=== PATIENT | female | born 1970 | race Two or more races ===

== ENCOUNTER 2016-06-26 19:49 | Emergency (ER) | payer OTHER ==
[~2016-06-26] VITALS: Ht 165.1 cm; Wt 90.7 kg
[~2016-06-26 19:49] MED LIST: *INS REG SQ; ACET325T53 PO; ATOR20TA PO; BLOO-367 VI; Cyclobenzaprine Hcl PO; HYDR-3326 PO; METF10002 PO; NPH,100V SQ; PANT40TA2 PO; PHOS250T2 PO; SERT100T PO
[2016-06-26 20:11] VITALS: BP 149/74
== END 2016-06-26 21:20 | disposition left against medical advice (07) ==
LOC: ER 19:52
DX: Z53.21 Procedure and treatment not carried out due to patient leaving prior to being seen by health care provider (principal)
CPT/HCPCS: A4606; Z7610

== ENCOUNTER 2016-12-25 06:13 | Emergency (ER) | payer OTHER ==
[~2016-12-25] VITALS: Ht 165.1 cm; Wt 90.7 kg
--- NOTE | 2016-12-25 06:25 | NUR ---
To bed 8 a 46 yo female bibself bilat flank pain, frequent painful urination x 1 day. Patient is aaox4, nad noted. vss. afebrile. ambulatory with steady gait. comfort measures rendered.
[2016-12-25] MEDS ORDERED: KETOROLAC TROMETHAMINE 15 MG/ML VIAL ONE (06:45)
[2016-12-25] MEDS ORDERED: ONDANSETRON HCL/PF 4 MG/2 ML VIAL ONE (06:45)
--- NOTE | 2016-12-25 06:45 | NUR ---
started a saline lock on the right hand g20, blood drawn and sent to lab.
[2016-12-25 06:50] LABS: BASOPHILS % (AUTO) 0.3 % (0.0-2.0); EOSINOPHILS # (AUTO) 0.1 /CMM (0.0-0.7); EOSINOPHILS % (AUTO) 1.2 % (0.0-6.0); HEMATOCRIT 35 % (33-45); HEMOGLOBIN 11.3 g/dL (11.5-14.8); LYMPHOCYTES # (AUTO) 1.4 /CMM (0.8-4.8); LYMPHOCYTES % (AUTO) 13.5 % (20.0-44.0); MEAN CORPUSCULAR HEMOGLOBIN 24 PG (26.0-33.0); MEAN CORPUSCULAR HGB CONC 33 g/dl (31.0-36.0); MEAN CORPUSCULAR VOLUME 73 fL (82-100); MONOCYTES # (AUTO) 0.4 /CMM (0.1-1.30); MONOCYTES % (AUTO) 4.2 % (2.0-12.0); NEUTROPHILS # (AUTO) 8.5 /CMM (1.8-8.9); NEUTROPHILS % (AUTO) 80.8 % (43.0-81.0); PLATELET COUNT (AUTO) 317 /CMM (150-450); RDW COEFFICIENT OF VARIATION 18.8 (11.5-15.0); RED BLOOD CELL COUNT(AUTO) 4.72 MIL/uL (4.0-5.2); WHITE BLOOD COUNT (AUTO) 10.6 K/uL (4.3-11.0)
[2016-12-25 06:55] LABS: BILIRUBIN,URINE NEGATIVE (NEGATIVE); BLOOD, URINE 3+ Ery/uL (NEGATIVE); KETONES,URINE NEGATIVE (NEGATIVE); LEUKOCYTE ESTERASE ,URINE 3+ (NEGATIVE); NITRITE, URINE NEGATIVE (NEGATIVE); PROTEIN,URINE TRACE mg/dl (NEGATIVE); UGLUCOSE NEGATIVE (NEGATIVE); UROBILINOGEN,URINE 0.2 EU/dL (0.2)
--- NOTE | 2016-12-25 06:55 | NUR ---
medicated patient as ordered by Dr Partida.
[2016-12-25 06:57] LABS: APPEARANCE,URINE SLIGHTLY CLOUDY (CLEAR); COLOR,URINE STRAW (YELLOW)
[2016-12-25] MEDS ORDERED: ONDANSETRON HCL/PF 4 MG/2 ML VIAL IVP ONE (07:00)
[2016-12-25] MEDS ORDERED: IV NS 0.9% 1,000 ML BAG IV ONE (07:00)
[2016-12-25] MEDS ORDERED: KETOROLAC TROMETHAMINE INJ 30 MG/ML VIAL IV ONE (07:00)
[2016-12-25 07:03] LABS: BACTERIA,URINE 1+ /HPF (None Seen); WBC,URINE 21-50 /HPF (0-3)
[2016-12-25 07:06] LABS: ALBUMIN 3.6 g/dL (3.4-5.0); BILIRUBIN,TOTAL 0.4 mg/dL (0.2-1.0); CALCIUM, SERUM 8.7 mg/dL (8.5-10.1); CREATININE 0.7 mg/dL (0.6-1.3); POTASSIUM 3.7 mmol/L (3.5-5.1); TOTAL PROTEIN, SERUM 7.9 g/dL (6.4-8.2)
[2016-12-25 07:19] LABS: BAND % (MANUAL) 1 % (0.0-5.0); EOSINOPHILS % (MANUAL) 2 % (0-4); LYMPHOCYTES % (MANUAL) 17 % (16-48); MONOCYTES % (MANUAL) 4 % (0-11.0); NEUTROPHILS % (MANUAL) 76 (42-76)
--- NOTE | 2016-12-25 07:20 | NUR ---
Patient is resting comfortably in bed with eyes closed. Easily aroused. VSS
[2016-12-25] MEDS ORDERED: CEFTRIAXONE 1GM BAG (ER ONLY) 1 GM/50 ML PIGGYBACK IV ONE (07:30)
[2016-12-25] MEDS ORDERED: CEFTRIAXONE 1GM BAG (ER ONLY) 50 ML IV ONE (07:36)
--- NOTE | 2016-12-25 08:10 | NUR ---
IV removed. Catheter intact and site benign. Pressure and 4x4 applied to site. No bleeding noted.Patient discharged to home in stable condition. Written and verbal after care instructions given. Patient verbalizes understanding of instruction.
--- NOTE | 2016-12-25 08:35 | NUR ---
Patient discharged to home in stable condition. Written and verbal after care instructions given. Patient verbalizes understanding of instruction.
[2016-12-25 09:12] VITALS: BP 158/80
== END 2016-12-25 08:15 | disposition home or self-care (01) ==
LOC: ER 06:15
DX: N12 Tubulo-interstitial nephritis, not specified as acute or chronic (principal); E11.9 Type 2 diabetes mellitus without complications; F32.9 Major depressive disorder, single episode, unspecified; Z79.4 Long term (current) use of insulin; Z90.710 Acquired absence of both cervix and uterus
CPT/HCPCS: 36415; 80048; 80076; 81001; 84703; 85025; 87077; 87086; 87186; 96361; 96365; 96375; 99284; A4606; J0696; J1885; J2405; J7030; Z7610; 81000-TC

== ENCOUNTER 2018-04-14 11:09 | Emergency (ER) | payer OTHER ==
[~2018-04-14] VITALS: Ht 165.1 cm; Wt 95.3 kg
[~2018-04-14 11:09] MED LIST changes: -HYDR-3326 PO; +HYDR-3974 PO; +METF-442 PO; -METF10002 PO
--- NOTE | 2018-04-14 11:10 | NUR ---
PT BIB SELF C/O FLU-LIKE SYMPTOMS X 2 WEEKS: COUGH, CHEST CONGESTION, NASAL CONGESTION, PT IS AAOX4, NOT IN RESPIRATORY DISTRESS, V/S STABLE, KEPT RESTED AND COMFORTABLE, AWAITING ER MD FOR EVAL.
--- NOTE | 2018-04-14 11:52 | NUR ---
PT LABS DRAWNED AND SENT TO LAB. AWAITING RESULTS.
--- NOTE | 2018-04-14 11:58 | NUR ---
RADIOLOGY AT BEDSIDE FOR XRAY.
[2018-04-14] MEDS ORDERED: IV NS 0.9% 1,000 ML BAG IV ONE (12:00)
[2018-04-14 12:02] LABS: BASOPHILS % (AUTO) 0.5 % (0.0-2.0); EOSINOPHILS % (AUTO) 3.1 % (0.0-6.0); HEMATOCRIT 39 % (33-45); HEMOGLOBIN 12.6 g/dL (11.5-14.8); LYMPHOCYTES # (AUTO) 1.5 /CMM (0.8-4.8); LYMPHOCYTES % (AUTO) 30.2 % (20.0-44.0); MEAN CORPUSCULAR HGB CONC 33 g/dl (31.0-36.0); MEAN CORPUSCULAR VOLUME 81 fL (82-100); MONOCYTES # (AUTO) 0.3 /CMM (0.1-1.30); MONOCYTES % (AUTO) 6.7 % (2.0-12.0); NEUTROPHILS % (AUTO) 59.5 % (43.0-81.0); PLATELET COUNT (AUTO) 280 /CMM (150-450); RED BLOOD CELL COUNT(AUTO) 4.76 MIL/uL (4.0-5.2)
[2018-04-14 12:17] LABS: CALCIUM, SERUM 8.5 mg/dL (8.5-10.1); CREATININE 0.6 mg/dL (0.6-1.3); POTASSIUM 3.1 mmol/L (3.5-5.1)
[2018-04-14] MEDS ORDERED: POTASSIUM CHLORIDE 10 MEQ TABLET.SA PO ONE (13:00)
[2018-04-14] MEDS ORDERED: POTASSIUM CHLORIDE 10 MEQ TABLET.SA ONE (13:15)
[2018-04-14 13:57] VITALS: BP 128/81
--- NOTE | 2018-04-14 13:57 | NUR ---
IV removed. Catheter intact and site benign. Pressure and 4x4 applied to site. No bleeding noted. Patient discharged to home in stable condition. Written and verbal after care instructions given. Patient verbalizes understanding of instruction.
== END 2018-04-14 13:58 | disposition home or self-care (01) ==
LOC: ER 11:15
DX: J20.9 Acute bronchitis, unspecified (principal); J06.9 Acute upper respiratory infection, unspecified; E11.9 Type 2 diabetes mellitus without complications; I10 Essential (primary) hypertension; E78.00 Pure hypercholesterolemia, unspecified; R11.10 Vomiting, unspecified; F32.9 Major depressive disorder, single episode, unspecified; Z90.710 Acquired absence of both cervix and uterus; Z79.4 Long term (current) use of insulin
CPT/HCPCS: 36415; 71045-TC; 80048-TC; 85025-TC; 87400; J7030

== ENCOUNTER 2018-04-20 22:59 | Emergency (ER) | payer OTHER ==
[~2018-04-20] VITALS: Ht 165.1 cm; Wt 95.3 kg
--- NOTE | 2018-04-20 23:05 | NUR ---
TIA C/O R KNEE PAIN. PT STATES SHE WAS WALKING AND "HEARD CRACK". PT DENIES GLF, TRUAMA, KO. PT UNABLE TO BEAR WEIGHT ON RIGHT LEG. PT AAOX4. RESPIRATIONS EVEN AND UNLABORED. SKIN WARM AND INTACT. PT APPEARS UNCOMFORTABLE. PT BROUGHT TO ER BED BY WHEEL CHAIR
--- NOTE | 2018-04-20 23:07 | NUR ---
MD AT BEDSIDE FOR EVALUATION
[2018-04-20] MEDS ORDERED: HYDROMORPHONE 1 MG/1 ML DISP.SYRIN ONE (23:25)
[2018-04-20] MEDS ORDERED: CARISOPRODOL 350 MG TABLET ONE (23:25)
[2018-04-20] MEDS ORDERED: DEXAMETHASONE SOD PHOSPHATE 10 MG/ML VIAL ONE (23:25)
--- NOTE | 2018-04-20 23:27 | NUR ---
VENOUS DUPLEX TECH WAS PAGED
[2018-04-20] MEDS ORDERED: HYDROMORPHONE INJ 0.5 MG/0.5 ML SYRINGE IM ONE (23:30)
[2018-04-20] MEDS ORDERED: CARISOPRODOL 350 MG TABLET PO ONE (23:30)
[2018-04-20] MEDS ORDERED: DEXAMETHASONE SOD PHOSPHATE 4 MG/ML VIAL IM ONE (23:30)
--- NOTE | 2018-04-20 23:33 | NUR ---
RADIOLOGY AT BEDSIDE FOR XRAY
--- NOTE | 2018-04-21 00:11 | NUR ---
VENOUS DUPLEX AT BEDSIDE
--- NOTE | 2018-04-21 00:22 | NUR ---
PT LEFT VIA WHEEL CHAIR. OFFERED CRUTCHES/CANE TO PT, PT REFUSED. PT INSTRUCTED NOT TO DRIVE. VERBALIZED UNDERSTANDING, LEFT WITH FAMILY MEMBERS. Patient discharged to home in stable condition. Written and verbal after care instructions given. Patient verbalizes understanding of instruction.
--- NOTE | 2018-04-21 00:22 | NUR ---
Da hand in ED - 04/21/18 at 0032 by HELDER Patient discharged to home in stable condition. Written and verbal after care instructions given. Patient verbalizes understanding of instruction. Pt ambulatory with a steady gait. Pt instructed not to drive, left with family members
[2018-04-21 00:24] VITALS: BP 120/72
== END 2018-04-21 00:24 | disposition home or self-care (01) ==
LOC: ER 23:00
DX: G57.01 Lesion of sciatic nerve, right lower limb (principal); I10 Essential (primary) hypertension; E11.9 Type 2 diabetes mellitus without complications; F32.9 Major depressive disorder, single episode, unspecified; Z90.710 Acquired absence of both cervix and uterus; Z79.4 Long term (current) use of insulin
CPT/HCPCS: 73564; 93971; 96372 ×2; 99284; A4606; J1100; J1170; Z7610